=== PATIENT | female | born 1935 | race Caucasian/White ===

== ENCOUNTER 2016-11-30 16:50 | Inpatient (IN) | payer MEDICARE, OTHER ==
[~2016-11-30] VITALS: Ht 175.3 cm; Wt 76.0 kg
[2016-11-30] MEDS ORDERED: SYMBICORT 16010.2 GM INH (19:07)
[2016-11-30] MEDS ORDERED: LOTREL 5-20 MG1 EACH PO (19:08)
[2016-11-30] MEDS ORDERED: LEVOTHYROXINE50 MCG PO (19:08)
[2016-11-30] MEDS ORDERED: PROTONIX 40 MG40 M1 PO (19:08)
[2016-11-30] MEDS ORDERED: ELAVIL 25 MG TA25 MG PO (19:09)
[2016-11-30] MEDS ORDERED: SPIRIVA18 MCG INH (19:09)
[2016-11-30] MEDS ORDERED: KENALOG OINT 0.15 GM EXT (19:10)
[2016-12-01 06:10] LABS: HEMOGLOBIN 12.5 gm/dl (12.3-15.3); RED BLOOD COUNT 3.93 M/UL (4.00-5.10)
[2016-12-01 06:47] LABS: BUN/CREATININE RATIO 21 (0-10)
[2016-12-03 06:19] LABS: RED BLOOD COUNT 3.32 M/UL (4.00-5.10); WHITE BLOOD COUNT 13.7 K/UL (4.5-11.0)
[2016-12-03 06:20] LABS: HEMOGLOBIN 10.3 gm/dl (12.3-15.3)
[2016-12-03 06:41] LABS: BUN/CREATININE RATIO 19 (0-10)
[2016-12-04 05:59] LABS: RED BLOOD COUNT 3.22 M/UL (4.00-5.10); WHITE BLOOD COUNT 12.7 K/UL (4.5-11.0)
[2016-12-04 06:24] LABS: BUN/CREATININE RATIO 26 (0-10)
[2016-12-05 06:20] LABS: HEMOGLOBIN 9.9 gm/dl (12.3-15.3); RED BLOOD COUNT 3.15 M/UL (4.00-5.10); WHITE BLOOD COUNT 9.8 K/UL (4.5-11.0)
[2016-12-05 06:48] LABS: BUN/CREATININE RATIO 20 (0-10)
[2016-12-06] MEDS ORDERED: LOVENOX SY40 MG/0.4 SQ (14:34)
[2016-12-06] MEDS ORDERED: COLACE 100MG C100 MG PO (14:35)
[2016-12-06] MEDS ORDERED: NORCO 7.5-3251 EACH PO (14:36)
== END 2016-12-06 15:36 | disposition home health service (06) | DRG 469 ==
LOC: M/S 18:45
PROVIDERS: Orthopaedic Surgery; ADMIT Internal Medicine
PROC: 0SRS01A Replacement of Left Hip Joint, Femoral Surface with Metal Synthetic Substitute, Uncemented, Open Approach (ICD-10-PCS; principal; 2016-12-02 09:30)
PROC: 0PSJ04Z Reposition Left Radius with Internal Fixation Device, Open Approach (ICD-10-PCS; 2016-12-04)
DX: S52.572A Other intraarticular fracture of lower end of left radius, initial encounter for closed fracture (principal); S72.002A Fracture of unspecified part of neck of left femur, initial encounter for closed fracture; D62 Acute posthemorrhagic anemia; S52.612A Displaced fracture of left ulna styloid process, initial encounter for closed fracture; W07.XXXA Fall from chair, initial encounter; Y92.009 Unspecified place in unspecified non-institutional (private) residence as the place of occurrence of the external cause; J44.9 Chronic obstructive pulmonary disease, unspecified; I10 Essential (primary) hypertension; E03.9 Hypothyroidism, unspecified; K21.9 Gastro-esophageal reflux disease without esophagitis; J45.909 Unspecified asthma, uncomplicated; H35.30 Unspecified macular degeneration; D72.829 Elevated white blood cell count, unspecified; R55 Syncope and collapse; R07.9 Chest pain, unspecified; S00.83XA Contusion of other part of head, initial encounter; K59.00 Constipation, unspecified; Z87.891 Personal history of nicotine dependence; Z91.19 Patient's noncompliance with other medical treatment and regimen; Z79.51 Long term (current) use of inhaled steroids; Z79.899 Other long term (current) drug therapy; Z88.5 Allergy status to narcotic agent; Z90.710 Acquired absence of both cervix and uterus; Z98.890 Other specified postprocedural states; Z82.3 Family history of stroke; Z82.49 Family history of ischemic heart disease and other diseases of the circulatory system; Z80.9 Family history of malignant neoplasm, unspecified
CPT/HCPCS: ECHO; 36415; 72170; 73100; 73110; 73502; 76000; 80048; 85027; 93005; 93306; 94640; 94664; 97110; 97116; 97530; 97535; C1713; C1776; J0690; J1100; J1650; J2270; J2710; J3010; J7030; J7120